=== PATIENT | male | born 1965 | race Caucasian/White ===

== ENCOUNTER 2019-03-14 12:07 | Observation (INO) | payer BC, OTHER ==
[~2019-03-14] VITALS: Ht 182.9 cm; Wt 90.0 kg
[2019-03-14] MEDS ORDERED: ELIQ5TAB PO (14:52)
[2019-03-14] MEDS ORDERED: CHLO25TA PO (14:52)
[2019-03-14] MEDS ORDERED: PANT40TA3 PO (14:52)
[2019-03-14] MEDS ORDERED: ASPI81TA26 PO (14:52)
[2019-03-14] MEDS ORDERED: ESCI20TA PO (14:52)
[2019-03-14] MEDS ORDERED: TARTCAP PO (14:52)
[2019-03-14] MEDS ORDERED: METO1TAB32 PO (14:52)
[2019-03-14] MEDS ORDERED: ASCO500T PO (14:52)
[2019-03-14] MEDS ORDERED: LISI40TA PO (14:52)
[2019-03-14] MEDS: LR 1,000 ML IV SCH ×2 (15:13→22:34)
--- NOTE | 2019-03-14 15:35 | HPEPDOC ---
[facility] Medical History & Physical Date of Admission Mar 14, 2019 History and Physical ATTENDING: Dr. Capellan PCP: Dr Murali Alvares. CC: RLE DVT HPI: 53yoF [address] from [facility] with RLE DVT. Pt had reported RLE pain, swelling, difficulty walking since Sat AM. Denies any fevers, chills, weakness, fatigue, FINE, CP, SOB, cough, palpitations, abdominal pain, N/V/D or changes in bowel or bladder habits. PMHx: HTN HLD MDD DM chronic BP PSHX: Lt CTR SOCHX: Resides in: [facility] Tobacco use: pipe 2per day. 1 can chewing tob per week. ETOH: denies Illicit Drugs: Denies FAMHX: Mother: Alive, well Father: MVA. ROS: As noted in HPI, otherwise 11pt ROS of systems reviewed and unremarkable. PE: GEN: 53yoM, appears stated age. Well-nourished, well developed. No acute distress. Alert and oriented x 3. Pleasant, interactive. HEENT: Normocephalic, atraumatic. Sclera are nonicteric. Conjunctiva without injection. No facial asymmetry. Moist mucous membranes. CHEST: Regular rate and rhythm, +S1, +S2 LUNGS: Clear to auscultation bilaterally. No wheezes, rales, or rhonchi. Breathing appears symmetric and easy. Patient is speaking in full sentences. No accessory muscle use. ABD: Round, soft, non-tender, non-distended. +Bowel sounds throughout. No rebound or guarding. EXT: Pulses 2+ bilaterally dorsalis pedis and radial. Rt calf edema, warmth and TTP noted SKIN: [place], dry, warm.No rashes. NEURO: Alert and oriented x 3. Cranial nerves III-XII are intact. No focal deficits appreciated. [facility] CXR: NAD [facility] EKG: SR labs [facility] WBC 11.7 Hgb 12.1 HCT 35.7 Plt 305 INR 1.1 PTT 26.0 BUN 32 SCr 1.0. Na 139 K 3.6 Cl 102 AST 22 ALT 18 A1c 6.3 A&P: 53yoF [address] from [facility] with RLE DVT. Pt had reported RLE pain, swelling, difficulty walking since Sat AM. 1. The patient will be admitted to [place] to Dr. Capellan's service. 2. Rt LE DVT. CTA [facility] chest with filling defects LM Pulm Art/BL Pulm art branches can not r/o PE. Denies CP/SOB. Admission VS pending, pt comfortable. Denies recent immobilization. stopped testosterone 1 mo ago. no known h/o neoplasm. NPO. IVF at 125cc/hr. US [facility] DVT superficial to pop vein. Pt was started on Eliquis at [facility]. Dr Capellan to review recs, possibly consider thrombolysis. Monitor. 3. DM2 A1c 6.3 [facility] 4. Tob use. encourage cessation. 5. HTN. metoprolol/lisinopril/chlorthalidone. Vital Signs adm VS pending. Laboratory Data Labs 24H Laboratory Tests 2 03/14/19 14:53: Bedside Glucose (Misc Panel) 92 Home Medications Scheduled Apixaban (Eliquis) 5 Mg Tablet, 10 MG PO BID STARTED AT [facility] Ascorbic Acid (Ascorbic Acid) 500 Mg Tablet, 1,000 MG PO DAILY Aspirin (Aspirin EC) 81 Mg Tablet.dr, 81 MG PO DAILY C/Sourcherry/Celery/Grape Seed (Tart Baig Capsule) 1 Each Capsule, 1 CAP PO DAILY Chlorthalidone (Chlorthalidone) 25 Mg Tablet, 25 MG PO DAILY Escitalopram Oxalate (Escitalopram Oxalate) 20 Mg Tablet, 20 MG PO DAILY Lisinopril (Lisinopril) 40 Mg Tablet, 40 MG PO DAILY Metoprolol Succinate (Metoprolol Succinate) 25 Mg Tab.er.24h, 25 MG PO DAILY Pantoprazole Sodium (Pantoprazole Sodium) 40 Mg Tablet.dr, 40 MG PO DAILY STARTED AT [facility] Allergies Coded Allergies: apple (Unverified Allergy, Unknown, HIVES/DIARRHEA, 03/14/19) codeine (Unverified Allergy, Unknown, ANAPHYLAXIS, 03/14/19) nitroglycerin (Unverified Allergy, Unknown, HIVES, 03/14/19) prednisone (Unverified Adverse Reaction, Unknown, UPSET STOMACH, 03/14/19) A-FIB/CHADSVASC A-FIB History Current/History of A-Fib/PAF?: No [place] Mar 14, 2019 15:35
[2019-03-14 20:00] VITALS: BP 108/59
[2019-03-15 06:00] VITALS: BP 127/81
[2019-03-15] MEDS: LR 1,000 ML IV SCH (06:03)
--- NOTE | 2019-03-15 08:29 | IPNPDOC ---
Date Seen The patient was seen on 03/15/19. Progress Note ATTENDING: Dr. Capellan CC: RLE DVT HPI: 53yoF transferred from [facility] with RLE DVT. Pt had reported RLE pain, swelling, difficulty walking since Sat AM. Pt states he is feeling well. Denies CP/SOB. RLE with edema, erythema, no change. Denies any fevers, chills, weakness, fatigue, FINE,cough, palpitations, abdominal pain, N/V/D or changes in bowel or bladder habits. PMHx: HTN HLD MDD DM chronic BP PSHX: Lt CTR PE: GEN: 53yoM, appears stated age. Well-nourished, well developed. No acute distress. Alert and oriented x 3. HEENT: Normocephalic, atraumatic. Sclera are nonicteric. Conjunctiva without injection. No facial asymmetry. Moist mucous membranes. CHEST: Regular rate and rhythm, +S1, +S2 LUNGS: Clear to auscultation bilaterally. No wheezes, rales, or rhonchi. Breathing appears symmetric and easy. ABD: Round, soft, non-tender, non-distended. +Bowel sounds throughout. No re bound or guarding. EXT: Pulses 2+ bilaterally dorsalis pedis and radial. Rt calf edema, warmth and TTP noted SKIN: [place], dry, warm.No rashes. NEURO: Alert and oriented x 3. Cranial nerves III-XII are intact. No focal deficits appreciated. [facility] CXR: [facility] EKG: SR labs [facility] WBC 11.7 Hgb 12.1 HCT 35.7 Plt 305 INR 1.1 PTT 26.0 BUN 32 SCr 1.0. Na 139 K 3.6 Cl 102 AST 22 ALT 18 A1c 6.3 A&P: 53yoF transferred from [facility] with RLE DVT. Pt had reported RLE pain, swelling, difficulty walking since Sat AM. 1. The patient will be admitted to [place] to Dr. Capellan's service. 2. Rt LE DVT. CTA [facility] chest with filling defects LM Pulm Art/BL Pulm art branches can not r/o PE. US [facility] DVT superficial to pop vein. Denies recent immobilization. stopped testosterone 1 mo ago. no known h/o neoplasm. Pt was started on Eliquis at [facility]. No procedure recommended at this time per Dr Capellan. FABY Vilchis. Lovenox 90mg SQ Q12. Start coumadin 5 mg daily and monitor daily INR. Hypercoagulable w/u pending. FOB pending. 3. DM2 A1c 6.3 [facility] CC diet 4. Tob use. encourage cessation. 5. HTN. metoprolol/lisinopril/chlorthalidone with hold parameters. A-FIB/CHADSVASC A-FIB History Current/History of A-Fib/PAF?: No VS, I&O, 24H, Fishbone Vital Signs/I&O Vital Signs Date Time Temp Pulse Resp B/P (MAP) Pulse Ox O2 Delivery O2 Flow Rate FiO2 03/15/19 06:00 98.3 91 18 127/81 (96) 97 I&O- Last 24 Hours up to 6 AM 03/15/19 06:00 Intake Total 1860 ml Balance 1860 ml Laboratory Data 24H LABS Laboratory Tests 2 03/14/19 14:53: Bedside Glucose (Misc Panel) 92 [place] Mar 15, 2019 08:29
[2019-03-15] MEDS ORDERED: PANTOPRAZOLE 40MG TAB (PROTONIX) PO SCH (09:00)
[2019-03-15] MEDS ORDERED: ENOXAPARIN 100MG/1ML SYRINGE (J1650) SC SCH (09:00)
[2019-03-15] MEDS ORDERED: CHLORTHALIDONE 25 MG TAB PO SCH (09:00)
[2019-03-15] MEDS ORDERED: ESCITALOPRAM OXALATE 10 MG TAB (LEXAPRO) PO SCH (09:00)
[2019-03-15] MEDS ORDERED: METOPROLOL SUCC *XL* 25MG TAB (TopROL *XL*) PO SCH (09:00)
[2019-03-15 09:17] LABS: HEMATOCRIT 37.7 % (42.0-52.0); HEMOGLOBIN 12.3 g/dl (13.5-17.5); MEAN CORPUSCULAR HEMOGLOBIN 27.7 pg (27.0-33.0); MEAN CORPUSCULAR HGB CONC 32.6 g/dl (32.0-36.5); MEAN CORPUSCULAR VOLUME 84.9 fl (80.0-96.0); PLATELET COUNT, AUTOMATED 377 10^3/uL (150-450); RED BLOOD COUNT 4.44 10^6/uL (4.30-6.10); WHITE BLOOD COUNT 8.8 10^3/uL (4.0-10.0)
[2019-03-15 09:46] VITALS: BP 157/84
[2019-03-15 09:51] LABS: ERYTHROCYTE SEDIMENTATION RATE 51 mm/hr (0-20)
[2019-03-15 09:52] LABS: BLOOD UREA NITROGEN 20 MG/DL (7-18); GLUCOSE, FASTING 72 MG/DL (70-100)
[2019-03-15 09:53] LABS: C REACTIVE PROTEIN QUANTITATIV 7.33 MG/DL (0.00-0.30); CALCIUM LEVEL 9.1 MG/DL (8.5-10.1); CARBON DIOXIDE LEVEL 30 MEQ/L (21-32); CHLORIDE LEVEL 101 MEQ/L (98-107); CREATININE FOR GFR 0.96 MG/DL (0.70-1.30); GLOMERULAR FILTRATION RATE > 60.0 (>56); MAGNESIUM LEVEL 2.2 MG/DL (1.8-2.4); POTASSIUM SERUM 3.5 MEQ/L (3.5-5.1); SODIUM LEVEL 136 MEQ/L (136-145)
[2019-03-15 10:12] LABS: DRVV SCREEN 81.7 SEC
[2019-03-15 10:24] LABS: DRVV CONFIRM 63.8 SEC; LUPUS CONFIRM RATIO 1.6
[2019-03-15 10:25] LABS: NORMALIZED RATIO 1.25 (0.00-1.20)
[2019-03-15] MEDS ORDERED: LOVE0.8I SC (10:29)
[2019-03-15] MEDS ORDERED: COUM1TAB17 PO (10:29)
--- NOTE | 2019-03-15 11:31 | DS.PDOC ---
Discharge Summary General Date of Admission Mar 14, 2019 at 13:57 Date of Discharge 03/15/19 Discharge Summary PROCEDURES PERFORMED DURING STAY: [None]. ADMITTING DIAGNOSES: 1. RLE DVT. DISCHARGE DIAGNOSES: 1. RLE DVT, possible PE. COMPLICATIONS/CHIEF COMPLAINT: Right Leg Dvt. HISTORY OF PRESENT ILLNESS: 53yoF transferred from [facility] with RLE DVT. Pt had reported RLE pain, swelling, difficulty walking since Sat AM. The patient states he recently stopped smoking tobacco. He was using 1-2 pipes per day. He does use chewing tobacco and uses approximately one can per week. He also reports he had discontinued testosterone supplements within the past month. He also had reported he had been ill with bronchitis and had been treated with antibiotics and prednisone. He admits he has not been as physically active as usual during the time he was feeling ill. HOSPITAL COURSE: Eliquis was placed on hold. The patient was started on Lovenox 90 mg subcutaneous every 12 hours. Coumadin anticoagulation to begin 5 mg daily with followup INR as outpatient. Stool occult blood requested. Hypercoagulable workup requested. This will be followed up as outpatient. No further intervention was recommended as per Dr. Capellan. DISCHARGE MEDICATIONS: Please see below. ALLERGIES: Please see below. PHYSICAL EXAMINATION ON DISCHARGE: Vital Signs Label Value Date Time Patient Temperature 98.3 degrees F 03/15/19 0600 Temperature Source Temporal 03/15/19 0600 Pulse 91 03/15/19 0600 Respiratory Rate 18 bpm 03/15/19 0600 Blood Pressure Assessment 127/81 (96) 03/15/19 0600 Bedside Pulse Oximetry 97 % 03/15/19 0600 GEN: 53yoM, appears stated age. Well-nourished, well developed. No acute distress. Alert and oriented x 3. HEENT: Normocephalic, atraumatic. Sclera are nonicteric. Conjunctiva without injection. No facial asymmetry. Moist mucous membranes. CHEST: Regular rate and rhythm, +S1, +S2 LUNGS: Clear to auscultation bilaterally. No wheezes, rales, or rhonchi. Breathing appears symmetric and easy. ABD: Round, soft, non-tender, non-distended. +Bowel sounds throughout. No rebound or guarding. EXT: Pulses 2+ bilaterally dorsalis pedis and radial. Rt calf edema, warmth and TTP noted SKIN: [place], dry, warm.No rashes. NEURO: Alert and oriented x 3. Cranial nerves III-XII are intact. No focal deficits appreciated. LABORATORY DATA: Please see below. IMAGING: none PROGNOSIS: Good ACTIVITY: [As tolerated]. DIET: CC DISCHARGE PLAN: Patient will be discharged on Coumadin anticoagulation. Avoid NOAG. Patient is aware not to take Eliquis as outpatient. Patient will continue continue Lovenox until INR therapeutic. DISPOSITION: D/C to home after Lovenox teaching completed, confirmation of coverage at the patient's primary see for Lovenox. Coumadin teaching completed. DISCHARGE INSTRUCTIONS: 1. Patient to followup with PCP in 5-7 days. 2. Patient to followup with Dr. Capellan's office in one to 2 weeks. 3. Lovenox teaching. 4. Coumadin teaching. 5. Patient instructed to continue Lovenox injections subcutaneous twice a day until INR therapeutic. Patient and family verbalized understanding. 6. Patient instructed to take Coumadin 5 mg by mouth daily 03/15, 03/16, 03/17 with INR Monday, March 18, 2019. Call the office for results and further Coumadin instructions. Coumadin will be managed as per Dr. Capellan's office. 7. Standing order for INR is forwarded to [facility] as per patient request. ITEMS TO FOLLOWUP ON ON OUTPATIENT: 1. hypercoagulable workup. 2. Stool occult blood. DISCHARGE CONDITION: [Stable]. TIME SPENT ON DISCHARGE: Greater than 30 minutes. Vital Signs/I&Os Vital Signs Date Time Temp Pulse Resp B/P (MAP) Pulse Ox O2 Delivery O2 Flow Rate FiO2 03/15/19 09:46 103 157/84 03/15/19 06:00 98.3 18 97 I&O- Last 24 Hours up to 6 AM 03/15/19 06:00 Intake Total 2610 ml Balance 2610 ml Laboratory Data Labs 24H Laboratory Tests 2 03/14/19 14:53: Bedside Glucose (Misc Panel) 92 03/15/19 08:38: Nucleated Red Blood Cells % (auto) 0.0, Erythrocyte Sedimentation Rate 51H, Anion Gap 5L, Glomerular Filtration Rate > 60.0, Blood Urea Nitrogen 20H, Creatinine 0.96, Sodium Level 136, Potassium Level 3.5, Chloride Level 101, Carbon Dioxide Level 30, Calcium Level 9.1, Magnesium Level 2.2, C-Reactive Protein, Quantitative 7.33H 03/15/19 08:46: Lupus Anticoag Normalized Ratio 1.25H, Lupus Anticoag DRVVT Screen Ratio 2.0H 03/15/19 08:47: CBC/BMP Laboratory Tests 03/15/19 08:38 Red Blood Count 4.44, Mean Corpuscular Volume 84.9, Mean Corpuscular Hemoglobin 27.7, Mean Corpuscular Hemoglobin Concent 32.6, Red Cell Distribution Width 11.9, Calcium Level 9.1 FSBS Laboratory Tests Test 03/14/19 14:53 Range/Units Bedside Glucose (Misc Panel) 92 70-105 MG/DL Microbiology Microbiology 03/15/19 Stool Occult Blood (SURYA), Received Pending Discharge Medications Scheduled Apixaban (Eliquis) 5 Mg Tablet, 10 MG PO BID, (Reported) STARTED AT [facility] Ascorbic Acid (Ascorbic Acid) 500 Mg Tablet, 1,000 MG PO DAILY, (Reported) Aspirin (Aspirin EC) 81 Mg Tablet.dr, 81 MG PO DAILY, (Reported) C/Sourcherry/Celery/Grape Seed (Tart Baig Capsule) 1 Each Capsule, 1 CAP PO DAILY, (Reported) Chlorthalidone (Chlorthalidone) 25 Mg Tablet, 25 MG PO DAILY, (Reported) Enoxaparin Sodium (Lovenox) 100 Mg/1 Ml Syringe, 90 MG SC Q12H 90 mg SQ Q12 hrs Escitalopram Oxalate (Escitalopram Oxalate) 20 Mg Tablet, 20 MG PO DAILY, (Reported) Lisinopril (Lisinopril) 40 Mg Tablet, 40 MG PO DAILY, (Reported) Metoprolol Succinate (Metoprolol Succinate) 25 Mg Tab.er.24h, 25 MG PO DAILY, (Reported) Pantoprazole Sodium (Pantoprazole Sodium) 40 Mg Tablet.dr, 40 MG PO DAILY, ( Reported) STARTED AT [facility] Warfarin Sodium (Coumadin) 5 Mg Tablet, 5 MG PO DAILY@17 Allergies Coded Allergies: apple (Unverified Allergy, Unknown, HIVES/DIARRHEA, 03/14/19) codeine (Unverified Allergy, Unknown, ANAPHYLAXIS, 03/14/19) nitroglycerin (Unverified Allergy, Unknown, HIVES, 03/14/19) prednisone (Unverified Adverse Reaction, Unknown, UPSET STOMACH, 03/14/19) Le Zavala Mar 15, 2019 11:31
[2019-03-15] MEDS ORDERED: WARFARIN SOD 5 MG TAB PO SCH (17:00)
[2019-03-15] MEDS ORDERED: LISINOPRIL 40 MG TAB PO SCH (21:00)
[2019-03-17 00:06] LABS: CARDIOLIPIN IGA ANTIBODY <9 APL U/mL (0-11); CARDIOLIPIN IGG ANTIBODY 17 GPL U/mL (0-14); CARDIOLIPIN IGM ANTIBODY <9 MPL U/mL (0-12); HOMOCYST(E)INE SERUM 15.7 umol/L (0.0-15.0)
[2019-03-17 14:51] LABS: HEXAGONAL PHASE PHOSPHOLIPID 9 sec (0-11)
[2019-03-18 08:06] LABS: ANTI THROMBIN 3 ANTIGEN IMMUNO 80 % (72-124); ANTI THROMBIN 3 FUNCT ACTIVITY 116 % (75-135); PROTEIN C ANTIGEN 88 % (60-150); PROTEIN S ANTIGEN FREE 134 % (57-157); PROTEIN S ANTIGEN TOTAL 105 % (60-150)
[2019-03-21 14:10] LABS: ANCA-ATYPICAL <1:20 titer (Neg:<1:20); ANTINUCLEAR ANTIBODIES DIRECT Negative (Negative); CYTOPLASMIC NEUTROP AB ANCA-C <1:20 titer (Neg:<1:20); PERINUCLEAR AB ANCA-P <1:20 titer (Neg:<1:20); SJOGREN'S ANTI SS-A <0.2 AI (0.0-0.9); SJOGREN'S ANTI SS-B <0.2 AI (0.0-0.9)
== END 2019-03-15 13:15 | disposition home or self-care (01) ==
LOC: M MS4PR 13:57
PROVIDERS: ADMIT Surgery Vascular Surgery; ATTEND Surgery Vascular Surgery
DX: I82.401 Acute embolism and thrombosis of unspecified deep veins of right lower extremity (principal); I10 Essential (primary) hypertension; E78.49 Other hyperlipidemia; F33.9 Major depressive disorder, recurrent, unspecified; E11.9 Type 2 diabetes mellitus without complications; Z79.01 Long term (current) use of anticoagulants; Z79.899 Other long term (current) drug therapy; Z79.82 Long term (current) use of aspirin; F17.220 Nicotine dependence, chewing tobacco, uncomplicated; F17.290 Nicotine dependence, other tobacco product, uncomplicated
CPT/HCPCS: 36415; 80048; 81240; 81241; 82270; 83090; 83735; 85027; 85300; 85301; 85302; 85305; 85306; 85598; 85613; 85652; 85730; 86038; 86140; 86147; 86235; 86256; 96360; 96361; 96372; J1650

== ENCOUNTER → 2019-05-04 | Outpatient (CLI) | payer OTHER ==
[~2019-05-04] MED LIST: ASCO500T PO; ASPI81TA26 PO; CHLO25TA PO; COUM1TAB17 PO; ELIQ5TAB PO; ESCI20TA PO; LISI40TA PO; LOVE0.8I SC; METO1TAB32 PO; PANT40TA3 PO; TARTCAP PO
[2019-05-04 15:08] LABS: PROTHROMBIN TIME 65.5 SECONDS (11.8-14.0)
[2019-05-04 19:46] LABS: INR 7.62
== END ==
LOC: M LAB 14:20
PROVIDERS: ATTEND Physician Assistant
DX: I82.501 Chronic embolism and thrombosis of unspecified deep veins of right lower extremity (principal)

== ENCOUNTER → 2019-05-25 | Outpatient (REF) | LOC: M LAB LCGH 15:20 | PROVIDERS: ATTEND Obstetrics & Gynecology Obstetrics | DX: C17.0 Malignant neoplasm of duodenum (principal); C78.4 Secondary malignant neoplasm of small intestine ==